=== PATIENT | female | born 2000 | race Caucasian/White ===

== ENCOUNTER 2019-02-24 19:47 | Emergency (ER) | payer BC ==
[~2019-02-24] VITALS: Ht 175.3 cm; Wt 75.0 kg
[2019-02-24] MEDS ORDERED: KETOROLAC 30MG/ML VIAL IV ONE (21:00)
[2019-02-24 21:30] VITALS: BP 116/68
== END 2019-02-24 22:01 | disposition home or self-care (01) ==
LOC: ER 19:47
DX: R07.89 Other chest pain (principal); R03.0 Elevated blood-pressure reading, without diagnosis of hypertension
CPT/HCPCS: 81025; 93005; 96374; 99283; J1885